=== PATIENT | male | born 2000 | race Caucasian/White ===

== ENCOUNTER → 2024-05-08 | Outpatient (CLI) | payer OTHER ==
[2024-05-08 10:56] LABS: ALBUMIN 4.3 g/dL (3.5-5.0)
[2024-05-08 10:57] LABS: CALCIUM 9.4 mg/dL (8.3-10.5)
[2024-05-08 10:58] LABS: TOTAL PROTEIN 7.1 g/dL (6.4-8.3)
[2024-05-08 11:00] LABS: TOTAL BILIRUBIN 0.7 mg/dL (0.2-1.2)
[2024-05-08 11:18] LABS: BASO # 0.02 K/mm3 (0.02-0.10); EOS # 0.11 K/mm3 (0.04-0.40); EOS % 2.9 % (0.0-4.0); HEMATOCRIT 49.2 % (42.0-52.0); HEMOGLOBIN 17.1 g/dL (13.5-18.0); LYMPH# 1.59 K/mm3 (1.50-4.00); MEAN CELL VOLUME 87 fl (78-100); MEAN CORPUSCULAR HEMOGLOBIN 30 pg (27-31); MEAN CORPUSCULAR HGB CONC 35 g/dL (33-37); MEAN PLATELET VOLUME 9.2 fl (7.4-10.4); MONO # 0.39 K/mm3 (0.20-0.80); NEU # 1.69 K/mm3 (1.40-6.50); PLATELET COUNT 296 K/mm3 (130-400); RED BLOOD COUNT 5.67 M/mm3 (4.20-5.60); RED CELL DISTRIBUTION WIDTH 12.2 % (11.5-14.5); WHITE BLOOD COUNT 3.8 K/mm3 (4.8-10.8)
[2024-05-26 14:38] LABS: BAKERS YEAST ALLERGEN CLASS SEE REPORT (()); BAKERS YEAST ALLERGEN COUNT SEE REPORT (()); CORN ALLERGEN COUNT SEE REPORT (()); EGG WHITE ALLERGEN CLASS SEE REPORT (()); EGG WHITE ALLERGEN COUNT SEE REPORT (()); MILK ALLERGEN CLASS SEE REPORT (()); MILK ALLERGEN COUNT SEE REPORT (()); ORANGE ALLERGEN CLASS SEE REPORT (()); ORANGE ALLERGEN COUNT SEE REPORT (()); PEANUT ALLERGEN CLASS SEE REPORT (()); PEANUT ALLERGEN COUNT SEE REPORT (()); RICE ALLERGEN CLASS SEE REPORT (()); RICE ALLERGEN COUNT SEE REPORT (()); SOYBEAN ALLERGEN CLASS SEE REPORT (()); SOYBEAN ALLERGEN COUNT SEE REPORT (()); STRAWBERRY ALLERGEN CLASS SEE REPORT (()); STRAWBERRY ALLERGEN COUNT SEE REPORT (()); TOMATO ALLERGEN CLASS SEE REPORT (()); TOMATO ALLERGEN COUNT SEE REPORT (()); WHEAT ALLERGEN CLASS SEE REPORT (()); WHEAT ALLERGEN COUNT SEE REPORT (())
== END ==
LOC: LAB 09:36
PROVIDERS: Internal Medicine
DX: Z00.00 Encounter for general adult medical examination without abnormal findings (principal); E73.9 Lactose intolerance, unspecified